=== PATIENT | female | born 1940 | race Caucasian/White ===

== ENCOUNTER → 2016-09-22 | Day surgery (SDC) | payer OTHER ==
[~2016-09-22] VITALS: Ht 165.1 cm; Wt 77.3 kg
[~2016-09-22] MED LIST: ACETAMINOPHEN 1000 MG/100 ML VIAL IV ONE; ACETAMINOPHEN/HYDROcodone 325 MG/5 MG TAB PO PRN; AMPICILLIN/SULBAC 3 GM/NS 100 ML IV SCH; ASPI81TA81 PO; CALCCHW9 CHEW; CHLORHEXIDINE GLUCONATE 2 % 1 PACK (2 CLOTHS) TOPICAL PRN; CLAR10CA3 PO; DIPH2.5T14 PO; DO NOT ADM ANY ANTICOAGULANT DRUGS PRN; FAMOTIDINE 20 MG/2 ML VIAL ONE; FLUO10TA PO; INSULIN HUMAN REGULAR 1,000 UNITS/10 ML VIAL SQ PRN; LACTATED RINGER'S 1000 ML INJ 1,000 ML IV ONE; LACTATED RINGER'S 1000 ML INJ 1,000 ML IV SCH; LACTATED RINGER'S 1000 ML IV PRN; LIDOCAINE 1%/EPINEPHrine 1:100,000 SOLN 50 ML VIAL ONE; LOSA100T PO; LOVA40TA PO; METO25TA3 PO; METOPROLOL TARTRATE 25 MG TAB PO PRN; MICROFIBRILLAR COLLAGEN HEMOSTAT 1 GM PKT ONE; MIDAZOLAM HCL 2 MG/2 ML VIAL ONE; OMEP40CA2 PO; ONDANSETRON HCL 4 MG/2 ML VIAL IV PUSH ONE; OXYMETAZOLINE HCL 0.05% 15 ML NASAL SPRAY ONE; POVIDONE IODINE 5% (ANTISEPSIS KIT) 4 APPLICATIONS EACH NARE PRN; PRAV40TA2 PO; PROPOFOL 200 MG/20 ML AMP IV ONE; REST15CA PO; SODIUM CHLORID 0.9% 500 ML IV PRN; STOO100C PO; fentaNYL CITRATE 250 MCG/5 ML AMP ONE
[2016-09-22 08:32] VITALS: BP 142/82; PULSE 61; RESP 20; TEMP 98.8; O2SAT 94
[2016-09-22 12:38] VITALS: BP 137/82; PULSE 64; RESP 20; TEMP 95.8; O2SAT 94
--- NOTE | 2016-09-22 19:17 | EKG ---
Date Performed: 09/22/2016 Time Performed: 08:23:45 PTAGE: 76 years EKG: ELECTRONIC ATRIAL PACEMAKER ABNORMAL RHYTHM ECG NO PREVIOUS TRACING DOCTOR: Jose Killian Interpretating Date/Time 09/22/2016 19:16:56
--- NOTE | 2016-10-04 12:50 | MP ---
cc: BRISSA ARCHIBALD M.D. DATE OF SURGERY September 22, [address] Brissa Archibald PREOPERATIVE DIAGNOSES 1. Open nasal fracture. 2. Nasal septal fracture. 3. Nasal airway obstruction. 4. Nasal septal deviation. 5. Hypertrophy of inferior turbinates. 6. Nasal septal hematoma. POSTOPERATIVE DIAGNOSES 1. Open nasal fracture. 2. Nasal septal fracture. 3. Nasal airway obstruction. 4. Nasal septal deviation. 5. Hypertrophy of inferior turbinates. 6. Nasal septal hematoma. OPERATION PERFORMED 1. Closed reduction of nasal fracture with stabilization. 2. Bilateral submucosal resection of inferior turbinates. 3. Open repair nasal septal fracture with drainage of septal hematoma. INDICATIONS Documented in the history and physical. DESCRIPTION OF OPERATION The patient was taken to OR #8 and placed in the supine position. Following induction of general anesthesia and intubation the nose was packed bilaterally with cotton pledgets saturated in 0.05% Oxymetazoline. These remained in place for a period of 5 minutes. Packing was then removed and then the nasal fracture reduction was completed, starting with manual pressure on the left nasal bone to push it back into reduction near the midline. Then, using a Cecelia elevator, the right nasal bone was elevated and also reduced into its normal location. The Cecelia elevator was then used to draw the nasal bones forward and reduce a hump in the nasal dorsum at the junction of the bony and cartilaginous nasal dorsum. When this was completed, injections were made into the nasal septum and inferior turbinates. A total of 6 mL of 1% Xylocaine with epinephrine 1:100,000 was injected, followed by a hemitransfixion incision opening the left nasal vestibule. Through this incision septal cartilage was examined. There was evidence of recent fracture with fragments involving the anterior one half of the quadrangular cartilage. A cumulative area of 2 x 2 cm was removed preserving 1.5-cm dorsal and caudal cartilaginous struts. The caudal cartilaginous strut was successfully mobilized and returned to its normal location in the midline. When this was completed, the mucosa was elevated from the bony septum and the bony septum was removed using [place] forceps and [place] septal forceps. The maxillary crest was removed using a 6-mm child Shabbir chisel, preserving the anterior nasal spine. The incision was then closed with a running suture of 4-0 chromic and the mucosal layers of septum were approximated to each other with a quilting stitch of 4-0 plain gut. Inferior turbinates were then fractured out medially and stab incisions were made along the inferior surfaces. Through these incisions the submucosal soft tissue was reduced using a curette and preserving the conchal bone. The incisions were then cauterized using the suction Bovie at 35 peacock. The remnants of the inferior turbinates were then relateralized to the lateral nasal wall. The nose was then packed with Merocel tampons coated in bacitracin ointment and a [place] splint was applied to the nasal dorsum. The procedure was terminated. The patient was then reversed from anesthesia and taken to Recovery in good condition. There were no complications. Blood loss was 80 mL. MD PARK Guerra/BRIDGER /10:19 AM /12:44 PM
== END | disposition home or self-care (01) ==
LOC: HSDC 07:36
PROVIDERS: ATTEND Otolaryngology
DX: S02.2XXA Fracture of nasal bones, initial encounter for closed fracture (principal); J98.8 Other specified respiratory disorders; J34.2 Deviated nasal septum; J34.3 Hypertrophy of nasal turbinates; S00.33XA Contusion of nose, initial encounter; J32.9 Chronic sinusitis, unspecified; I12.9 Hypertensive chronic kidney disease with stage 1 through stage 4 chronic kidney disease, or unspecified chronic kidney disease; N18.1 Chronic kidney disease, stage 1
CPT/HCPCS: 00160; 21336; 21337; 30140; 93005; J0131; J0295; J2250; J2405; J3010; J7120